=== PATIENT | female | born 1985 | race Caucasian/White ===

== ENCOUNTER 2023-01-02 14:16 | Observation (INO) ==
[2023-01-02] MEDS ORDERED: NS 1,000 ML IV 1,000 ML IV SCH (16:00)
[2023-01-02 16:17] LABS: BASOPHILS % (AUTO) 0.5 % (0.2-1.0); EOSINOPHILS # (AUTO) 0.1 x10^3/uL (0.0-0.2); EOSINOPHILS % (AUTO) 1.1 % (0.9-2.9); HEMATOCRIT 37.6 % (36.0-47.0); HEMOGLOBIN 13.1 g/dL (12.0-16.0); LYMPHOCYTES # (AUTO) 1.6 X10^3/uL (1.3-2.9); LYMPHOCYTES % (AUTO) 19.2 % (21.0-51.0); MEAN CORPUSCULAR HEMOGLOBIN 30.8 pg (27.0-34.0); MEAN CORPUSCULAR HGB CONC 34.8 g/dL (33.0-35.0); MEAN CORPUSCULAR VOLUME 88.5 fL (80.0-100.0); MEAN PLATELET VOLUME 9.3 fL (7.4-11.0); MONOCYTES # (AUTO) 0.4 x10^3/uL (0.3-0.8); MONOCYTES % (AUTO) 4.7 % (0.0-13.0); NEUTROPHILS # (AUTO) 6.2 x10^3/uL (2.2-4.8); NEUTROPHILS % (AUTO) 74.5 % (42.0-75.0); RED BLOOD COUNT 4.25 X10^6/uL (3.5-5.4); RED CELL DISTRIBUTION WIDTH 13.2 % (11.6-16.5); WHITE BLOOD COUNT 8.4 X10^3/uL (3.6-10.0)
[2023-01-02 16:25] LABS: ALANINE AMINOTRANSFERASE 17 Units/L (12-78); ALBUMIN 4.2 g/dL (3.4-5.0); ALKALINE PHOSPHATASE 50 Units/L (46-116); ASPARTATE AMINO TRANSFERASE 11 Units/L (15-37); BLOOD UREA NITROGEN 10 mg/dL (7-18); CALCIUM 8.8 mg/dL (8.5-10.1); CARBON DIOXIDE 30.8 mmol/L (21-32); CHLORIDE 105 mmol/L (98-107); CREATININE 0.88 mg/dL (0.55-1.02); SODIUM 143 mmol/L (136-145); TOTAL PROTEIN 7.7 g/dL (6.4-8.2); eGFR NON BLACK RACES > 60 (>60)
[2023-01-02 16:27] LABS: SERUM PREGNANCY TEST, QUAL NEGATIVE <10 mIU/mL
[2023-01-02 17:08] LABS: BILIRUBIN,URINE NEGATIVE (NEGATIVE); BLOOD/HEMOGLOBIN,URINE NEGATIVE (NEGATIVE); GLUCOSE, URINE NEGATIVE (NEGATIVE); KETONES,URINE NEGATIVE (NEGATIVE); LEUKOCYTE ESTERASE ,URINE 1+ (NEGATIVE); NITRITES,URINE NEGATIVE (NEGATIVE); PROTEIN,URINE 1+ (NEGATIVE); UROBILINOGEN,URINE NORMAL (NORMAL)
[2023-01-02 17:20] LABS: APPEARANCE,URINE CLEAR (CLEAR); BACTERIA,URINE TRACE /HPF (NEGATIVE); COLOR,URINE YELLOW (YELLOW); RBC,URINE NONE SEEN /HPF (0-3); SQUAMOUS EPITHELIAL CELL,UR RARE /HPF (NEGATIVE)
[2023-01-02] MEDS: ZOSYN VIAL 3.375 GRAMS 3.375 G in NS 100 ML IV 100 ML IV SCH ×2 (17:48→22:12)
[2023-01-02] MEDS: D5 1/2 NS 1,000 ML 1,000 ML IV SCH (17:48)
--- NOTE | 2023-01-02 22:27 | EKG ---
Test Reason : surgery Blood Pressure : */* mmHG Vent. Rate : 78 BPM Atrial Rate : 78 BPM P-R Int : 248 ms QRS Dur : 80 ms QT Int : 392 ms P-R-T Axes : 67 79 61 degrees QTc Int : 446 ms Sinus rhythm with sinus arrhythmia with 1st degree AV block Otherwise normal ECG No previous ECGs available Confirmed by Lm Grier ([id number]) on 01/05/2023 10:30:43 AM Referred By: Confirmed By: Lm Grier
[2023-01-03] MEDS: D5 1/2 NS 1,000 ML 1,000 ML IV SCH ×3 (04:04→17:59)
[2023-01-03] MEDS: ZOSYN VIAL 3.375 GRAMS 3.375 G in NS 100 ML IV 100 ML IV SCH ×2 (05:21→14:26)
[2023-01-03 06:42] LABS: BASOPHILS % (AUTO) 0.9 % (0.2-1.0); EOSINOPHILS # (AUTO) 0.1 x10^3/uL (0.0-0.2); EOSINOPHILS % (AUTO) 3.1 % (0.9-2.9); HEMATOCRIT 32.5 % (36.0-47.0); HEMOGLOBIN 11.5 g/dL (12.0-16.0); LYMPHOCYTES # (AUTO) 1.4 X10^3/uL (1.3-2.9); LYMPHOCYTES % (AUTO) 34.7 % (21.0-51.0); MEAN CORPUSCULAR HGB CONC 35.3 g/dL (33.0-35.0); MEAN CORPUSCULAR VOLUME 87.9 fL (80.0-100.0); MEAN PLATELET VOLUME 9.9 fL (7.4-11.0); MONOCYTES # (AUTO) 0.3 x10^3/uL (0.3-0.8); MONOCYTES % (AUTO) 7.9 % (0.0-13.0); NEUTROPHILS # (AUTO) 2.2 x10^3/uL (2.2-4.8); NEUTROPHILS % (AUTO) 53.4 % (42.0-75.0); RED CELL DISTRIBUTION WIDTH 13.3 % (11.6-16.5); WHITE BLOOD COUNT 4.1 X10^3/uL (3.6-10.0)
[2023-01-03 07:01] LABS: ALANINE AMINOTRANSFERASE 15 Units/L (12-78); ALBUMIN 3.4 g/dL (3.4-5.0); ALKALINE PHOSPHATASE 37 Units/L (46-116); ASPARTATE AMINO TRANSFERASE 13 Units/L (15-37); BLOOD UREA NITROGEN 8 mg/dL (7-18); CALCIUM 8.1 mg/dL (8.5-10.1); CARBON DIOXIDE 28.5 mmol/L (21-32); CHLORIDE 106 mmol/L (98-107); CREATININE 0.81 mg/dL (0.55-1.02); SODIUM 141 mmol/L (136-145); TOTAL PROTEIN 6.3 g/dL (6.4-8.2); eGFR NON BLACK RACES > 60 (>60)
--- NOTE | 2023-01-03 08:52 | RAD ---
HISTORYSURGERY, ACUTE APPENDICITIS BREAST AUGSTUDYCHEST, 1 [id number]/2021FINDINGSThe trachea is midline. The cardiac silhouette is unremarkable. The lungs are clear without focal infiltrate or effusion. The bony thorax is unremarkable.IMPRESSIONNo acute cardiopulmonary findings .Electronically signed by: Nubia Dudley (Jan 03, 2023 08:50:33)
[2023-01-03] MEDS ORDERED: ZOFRAN INJ 4 MG VIAL IVP PRN ×2 (09:22→12:40)
[2023-01-03] MEDS ORDERED: BENADRYL INJ 50 MG VIAL IVP PRN (09:22)
[2023-01-03] MEDS ORDERED: REGLAN INJ 10 MG VIAL IVP PRN (09:22)
[2023-01-03] MEDS ORDERED: BARHEMSYS INJ IVP PRN (09:22)
[2023-01-03] MEDS ORDERED: ANCEF VIAL 1 GRAM ONE (10:40)
[2023-01-03] MEDS ORDERED: NS 100 ML IV 100 ML ONE (10:40)
[2023-01-03] MEDS ORDERED: LR 1,000 ML IV 1,000 ML IV ONE (10:40)
[2023-01-03] MEDS ORDERED: VERSED ONE (10:49)
[2023-01-03] MEDS ORDERED: PEPCID 20 MG VIAL ONE (10:49)
[2023-01-03] MEDS ORDERED: BACTROBAN TOPICAL OINT ONE (11:14)
[2023-01-03] MEDS ORDERED: SUPRANE ONE (11:24)
[2023-01-03] MEDS ORDERED: ZEMURON 100 MG VIAL ONE (11:28)
[2023-01-03] MEDS ORDERED: DIPRIVAN VIAL 20 ML ONE (11:28)
[2023-01-03] MEDS ORDERED: QUELICIN (OR ANECTINE) ONE (11:28)
[2023-01-03] MEDS ORDERED: FENTANYL VIAL INJ 250 mcg ONE (11:28)
[2023-01-03] MEDS ORDERED: BRIDION ONE (11:51)
[2023-01-03] MEDS ORDERED: ZOFRAN INJ 4 MG VIAL ONE (11:51)
[2023-01-03] MEDS ORDERED: TORADOL 30 MG VIAL ONE (11:51)
[2023-01-03] MEDS ORDERED: DILAUDID INJ ONE (12:21)
[2023-01-03] MEDS: DILAUDID INJ IVP PRN ×2 (12:23→12:28)
[2023-01-03] MEDS ORDERED: MORPHINE SULFATE INJ 2 MG INJ IVP PRN (12:40)
--- NOTE | 2023-01-03 17:20 | DR.UPDATE ---
H&P Update Prescription drug monitoring program results: PDMP reviewed and no concerns identified H&P Reviewed: Yes Any changes to H&P?: Yes Changes noted:: PATIENT WAS ADMITTED TO THE HOSPTIAL FOR EVALUATION AND TREATMENT OF ACUTE APPENDICITIS. AN OUTPATIENT ABDOMEN/PELVIS CT WITH CONTRAST WAS OBTAINED ON 01/02/23 AND REVEALED: ENLARGED RETROCECAL APPENDIX WITHOUT PERIAPPENDICEAL INFLAMMATORY CHANGES. FINDINGS MAY REPRESENT EARLY ACUTE APPENDICITIS IN THE APPROPRIATECLINICAL SETTING. PELVIC VARICES. ON ARRIVAL TO THE HOSPITAL, VIALS WERE: 98.8-90-18-98%-113/66. LABS WERE OBTAINED. WBC 8.4, RBC 4.25, HGB 13.1, HCT 37.6, PLT COUNT 247, SODIUM 143, POTASSIUM 3.9, CHLORIDE 105, BUN 10, CREATININE 0.88, GLUCOSE 91, CALCIUM 8.8, TOTAL BILI 1.00, AST 11, ALT 17, ALK PHOS 50, TOTAL PROTEIN 7.7, ALBUMIN 4.2. CHEST XRAY WAS OBTAINED. IT WAS NEGATIVE FOR ACUTE CARDIOPULMONARY FINDINGS. EKG REVEALED NORMAL SINUS RHYTHM WITH HR 78. 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 HE PLANS FOR DIAGNOSTIC LAPAROSCOPY AND LAP FER. WE ARE IN AGREEMENT WITH PLANS. SHE WAS STARTED ON D51/2 NORMAL SALINE AT 125 ML/HR, ZOSYN 3.375G IV TID, ZOFRAN 4MG IV Q6H PRN, AND MORPHINE SULFATE 2MG IV Q3H PRN. OTHERWISE, WE WILL FOLLOW-UP WITH AM LABS AND CONTINUE TO MONITOR. TIME SPENT ON CLINICAL ASSESSMENT, REVIEWING LABS AND IMAGING, DECISION MAKING, AND DOCUMENTATION GREATER THAN 75 MINUTES. Patient was examined?: Yes
[2023-01-03 18:01] VITALS: BP 100/58
== END 2023-01-03 18:22 | disposition home or self-care (01) ==
LOC: MED/SURG
PROVIDERS: ADMIT Internal Medicine; ATTEND Internal Medicine
PROC: APPYLAP (ICD-10-PCS; 2023-01-03 12:00)
DX: R10.84 Generalized abdominal pain; R79.89 Other specified abnormal findings of blood chemistry; K35.890 Other acute appendicitis without perforation or gangrene; R10.31 Right lower quadrant pain